=== PATIENT | female | born 1955 | race Two or more races ===

== ENCOUNTER 2024-05-31 12:16 | Inpatient (IN) | payer OTHER ==
[~2024-05-31] VITALS: Ht 152.4 cm; Wt 88.0 kg
[2024-05-31 13:27] LABS: Basophils # (auto) 0 10 ^3/uL (0-0.2); Basophils % (auto) 0.6 % (0.0-2.0); Eosinophils # (auto) 0.1 10 ^3/uL (0-0.8); Eosinophils % (auto) 1.1 % (0.0-7.0); Hematocrit 26.4 % (36.0-46.0); Hemoglobin 8.1 g/dL (12.2-16.2); Lymphocytes % (auto) 14.8 % (10.0-50.0); Mean Corpuscular Hgb Conc. 30.8 g/dL (32.0-36.0); Mean Corpuscular Volume 71.6 fL (80.0-100.0); Monocytes # (auto) 0.5 10 ^3/uL (0-1.3); Monocytes % (auto) 7.6 % (0.0-12.0); Neutrophils # (auto) 5.1 10 ^3/uL (1.6-8.6); Neutrophils % (auto) 75.9 % (37.0-80.0); Platelet Count (auto) 368 10^3/uL (140-450); Red Blood Cells 3.69 10^6/uL (4.0-5.20); Red Cell Distribution Width 18.7 % (11.8-14.3); White Blood Cell 6.7 10^3/uL (4.4-10.8)
[2024-05-31] MEDS: SODIUM CHLORIDE 0.9% 1,000 ML IV ONE ×2 (13:30→21:15)
[2024-05-31 13:39] LABS: Chloride 103 mmol/L (98-107); Potassium 3.4 mmol/L (3.5-5.1); Sodium 138 mmol/L (136-145)
[2024-05-31 13:40] LABS: Anion Gap 9 (5-15); Calcium 10.6 mg/dL (8.7-10.4); Carbon Dioxide 26 mmol/L (20-31)
[2024-05-31 13:45] LABS: Blood Urea Nitrogen 31 mg/dL (9-23); Glucose 97 mg/dL (74-106)
[2024-05-31 15:13] LABS: Urine Bacteria FEW /hpf (None Seen); Urine Blood Negative /uL (Negative); Urine Clarity Clear (Clear); Urine Color Light-Yellow (Yellow); Urine Hyaline Cast FEW /lpf (0 - 2); Urine Mucus FEW (None Seen); Urine Protein, UAD Negative (Negative); Urine Specific Gravity 1.015 (1.001-1.035); Urine Urobilinogen Normal (Negative); Urine WBC 6 /hpf (0 - 5); Urine pH 5.5 (5.0-9.0)
[2024-05-31] MEDS: POTASSIUM EFFERVESENT TAB 25 MEQ PO ONE (16:13)
[2024-05-31 20:22] VITALS: PULSE 86; RESP 19; O2SAT 100
[2024-05-31] MEDS ORDERED: ACETAMINOPHEN 325 MG TAB PO PRN (21:00)
[2024-05-31] MEDS ORDERED: ONDANSETRON HCL 4 MG/2 ML VIAL IV PRN (21:00)
[2024-05-31] MEDS: ATORVASTATIN 20 MG TAB PO SCH (22:00)
[2024-05-31 22:09] LABS: % Iron Saturation 4.9 % (15-50)
[2024-05-31 22:28] LABS: INR 1.03 (0.9-1.15); Prothrombin Time 10.9 sec (9.3-11.8)
[2024-06-01] VITALS (12 sets, daily range): BP systolic 120–153; BP diastolic 55–82; PULSE 72–91; RESP 16–22; TEMP 97.7–98.8; O2SAT 94–98
[2024-06-01] MEDS: LEVOTHYROXINE SODIUM 100 MCG TAB PO SCH (06:02)
[2024-06-01 06:31] LABS: Basophils # (auto) 0 10 ^3/uL (0-0.2); Eosinophils # (auto) 0.1 10 ^3/uL (0-0.8); Eosinophils % (auto) 1.2 % (0.0-7.0); Lymphocytes # (auto) 1.4 10 ^3/uL (0.4-5.4); Mean Corpuscular Volume 70.4 fL (80.0-100.0); Monocytes # (auto) 0.4 10 ^3/uL (0-1.3)
[2024-06-01 06:34] LABS: Basophils % (auto) 0.8 % (0.0-2.0); Hematocrit 21.6 % (36.0-46.0); Mean Corpuscular Hemoglobin 22.2 pg (28.0-32.0); Mean Corpuscular Hgb Conc. 31.6 g/dL (32.0-36.0); Monocytes % (auto) 7.8 % (0.0-12.0); Neutrophils # (auto) 3.5 10 ^3/uL (1.6-8.6); Neutrophils % (auto) 65.2 % (37.0-80.0); Nucleated Red Blood Cells % 0.1 %; Platelet Count (auto) 285 10^3/uL (140-450); Red Blood Cells 3.07 10^6/uL (4.0-5.20); Red Cell Distribution Width 18.4 % (11.8-14.3); White Blood Cell 5.4 10^3/uL (4.4-10.8)
[2024-06-01 06:48] LABS: Chloride 107 mmol/L (98-107); Potassium 3.8 mmol/L (3.5-5.1); Sodium 141 mmol/L (136-145)
[2024-06-01 06:49] LABS: Anion Gap 7 (5-15); Carbon Dioxide 27 mmol/L (20-31)
[2024-06-01 06:54] LABS: Glucose 95 mg/dL (74-106); Triglycerides 81 mg/dL (< 150)
[2024-06-01 06:55] LABS: BUN/Creatinine Ratio 24.4 (10.0-20.0); Blood Urea Nitrogen 33 mg/dL (9-23); LDL Cholesterol 95 mg/dL (< 100)
[2024-06-01 06:56] LABS: Cholesterol 143 mg/dL (< 200); HDL Cholesterol 38 mg/dL (40-59); Hemoglobin 6.8 g/dL (12.2-16.2)
[2024-06-01] MEDS: FAMOTIDINE 10 MG PO SCH (09:39)
[2024-06-01] MEDS: buPROPion HCL 75 MG TAB PO SCH (09:39)
[2024-06-01] MEDS ORDERED: ASPirin 81 mg TAB PO SCH (10:00)
[2024-06-01 12:16] LABS: % Iron Saturation 5.5 % (15-50)
[2024-06-02] VITALS (8 sets, daily range): BP systolic 116–132; BP diastolic 55–82; PULSE 67–103; RESP 16–18; TEMP 97.7–98.5; O2SAT 94–99
[2024-06-02 06:38] LABS: Basophils # (auto) 0 10 ^3/uL (0-0.2); Eosinophils # (auto) 0.1 10 ^3/uL (0-0.8); Lymphocytes # (auto) 1.3 10 ^3/uL (0.4-5.4); White Blood Cell 4.7 10^3/uL (4.4-10.8)
[2024-06-02 06:41] LABS: Basophils % (auto) 0.9 % (0.0-2.0); Eosinophils % (auto) 1.4 % (0.0-7.0); Hematocrit 26.4 % (36.0-46.0); Hemoglobin 8.5 g/dL (12.2-16.2); Lymphocytes % (auto) 27.4 % (10.0-50.0); Mean Corpuscular Hemoglobin 23.8 pg (28.0-32.0); Mean Corpuscular Hgb Conc. 32.3 g/dL (32.0-36.0); Mean Corpuscular Volume 73.6 fL (80.0-100.0); Monocytes # (auto) 0.4 10 ^3/uL (0-1.3); Monocytes % (auto) 9.6 % (0.0-12.0); Neutrophils # (auto) 2.8 10 ^3/uL (1.6-8.6); Neutrophils % (auto) 60.7 % (37.0-80.0); Platelet Count (auto) 256 10^3/uL (140-450); Red Blood Cells 3.58 10^6/uL (4.0-5.20); Red Cell Distribution Width 18.9 % (11.8-14.3)
[2024-06-02 06:50] LABS: Anion Gap 8 (5-15); Carbon Dioxide 25 mmol/L (20-31); Chloride 110 mmol/L (98-107); Potassium 3.9 mmol/L (3.5-5.1); Sodium 143 mmol/L (136-145)
[2024-06-02 06:51] LABS: Calcium 9.7 mg/dL (8.7-10.4)
[2024-06-02 06:56] LABS: BUN/Creatinine Ratio 22.3 (10.0-20.0); Blood Urea Nitrogen 29 mg/dL (9-23); Glucose 93 mg/dL (74-106)
[2024-06-02] MEDS: GOLYTELY 4L KIT PO ONE (14:36)
[2024-06-03] VITALS (10 sets, daily range): BP systolic 128–146; BP diastolic 58–79; PULSE 70–87; RESP 12–20; TEMP 97.2–98.1; O2SAT 90–99
[2024-06-03] MEDS: GOLYTELY 4L KIT PO ONE (05:36)
[2024-06-03 12:05] LABS: Basophils # (auto) 0 10 ^3/uL (0-0.2); Eosinophils # (auto) 0.1 10 ^3/uL (0-0.8); Hematocrit 26.6 % (36.0-46.0); Hemoglobin 8.6 g/dL (12.2-16.2); Monocytes # (auto) 0.4 10 ^3/uL (0-1.3)
[2024-06-03 12:15] LABS: Basophils % (auto) 0.7 % (0.0-2.0); Eosinophils % (auto) 1.3 % (0.0-7.0); Lymphocytes % (auto) 22.7 % (10.0-50.0); Mean Corpuscular Hemoglobin 24.2 pg (28.0-32.0); Mean Corpuscular Hgb Conc. 32.6 g/dL (32.0-36.0); Mean Corpuscular Volume 74.3 fL (80.0-100.0); Monocytes % (auto) 8.9 % (0.0-12.0); Neutrophils % (auto) 66.4 % (37.0-80.0); Nucleated Red Blood Cells % 0.1 %; Platelet Count (auto) 254 10^3/uL (140-450); Red Blood Cells 3.58 10^6/uL (4.0-5.20); Red Cell Distribution Width 19.6 % (11.8-14.3); White Blood Cell 4.5 10^3/uL (4.4-10.8)
[2024-06-03] MEDS ORDERED: LIDOCAINE VISCOUS 2% 15ML UD ONE (14:01)
[2024-06-03] MEDS ORDERED: SODIUM CHLORIDE LOCK 10 ML ONE (14:01)
[2024-06-03] MEDS ORDERED: diphenhdrAMINE HCL 50 MG/1 ML VL ONE (14:02)
[2024-06-03] MEDS: fentaNYL CITRATE 100 MCG/2 ML VL ONE (15:11)
[2024-06-03] MEDS: MIDAZOLAM HCL 5 MG/ML-1ML VIAL ONE (15:11)
[2024-06-03] MEDS: SUCRALFATE 1 GM TAB PO SCH (22:07)
[2024-06-04] VITALS (7 sets, daily range): BP systolic 124–153; BP diastolic 31–83; PULSE 62–80; RESP 16–20; TEMP 36.5; O2SAT 92–98
[2024-06-04] MEDS: PANTOPRAZOLE 40 MG TAB PO SCH (05:05)
[2024-06-04] MEDS: DOCUSATE CALCIUM 240 MG CAP PO SCH (09:00)
[2024-06-04] MEDS: FERROUS SULFATE 325mg EC TAB PO ONE (09:00)
[2024-06-04] MEDS ORDERED: ASCO1TAB27 PO (12:56)
[2024-06-04] MEDS ORDERED: PANT40TA57 PO (12:56)
[2024-06-04] MEDS ORDERED: SUCR1SUS26 PO (12:56)
[2024-06-04] MEDS ORDERED: FERR-7 PO (12:56)
[2024-06-04] MEDS: cloNIDine HCL 0.1 MG TAB PO ONE (17:15)
== END 2024-06-04 18:13 | disposition home or self-care (01) | DRG 812 ==
LOC: ER 12:16 → TELE 21:06 → TELE-EAST 21:06
PROVIDERS: ADMIT Nurse Practitioner Family; ATTEND Internal Medicine
PROC: 30233N1 Transfusion of Nonautologous Red Blood Cells into Peripheral Vein, Percutaneous Approach (ICD-10-PCS; 2024-06-01)
PROC: 0DJ08ZZ Inspection of Upper Intestinal Tract, Via Natural or Artificial Opening Endoscopic (ICD-10-PCS; principal; 2024-06-03 15:05)
PROC: 0DJD8ZZ Inspection of Lower Intestinal Tract, Via Natural or Artificial Opening Endoscopic (ICD-10-PCS; 2024-06-03 15:05)
DX: D50.9 Iron deficiency anemia, unspecified (principal); G45.9 Transient cerebral ischemic attack, unspecified; N17.9 Acute kidney failure, unspecified; K57.30 Diverticulosis of large intestine without perforation or abscess without bleeding; K44.9 Diaphragmatic hernia without obstruction or gangrene; K64.8 Other hemorrhoids; R94.31 Abnormal electrocardiogram [ECG] [EKG]; E66.9 Obesity, unspecified; I10 Essential (primary) hypertension; E06.3 Autoimmune thyroiditis; I25.2 Old myocardial infarction; Z81.8 Family history of other mental and behavioral disorders; Z83.3 Family history of diabetes mellitus; Z68.37 Body mass index [BMI] 37.0-37.9, adult
CPT/HCPCS: 36415; 43235; 45378; 70450; 70551; 71045; 76775; 80048; 80061; 81001; 82270; 82728; 83540; 83550; 83735; 83880; 84436; 84443; 84484; 85025; 85045; 85610; 86850; 86900; 86901; 86920; 93005; 93306; G0378; J2250